=== PATIENT | male | born 1950 | race Caucasian/White ===

== ENCOUNTER → 2020-01-26 | Outpatient (CLI) | payer MEDICARE | END | disposition home or self-care (01) | LOC: CFH 14:54 | PROVIDERS: ATTEND Internal Medicine Cardiovascular Disease | DX: Z01.810 Encounter for preprocedural cardiovascular examination (principal); I05.1 Rheumatic mitral insufficiency; Z95.2 Presence of prosthetic heart valve | CPT/HCPCS: 93306 ==